=== PATIENT | male | born 1950 | race Caucasian/White ===

== ENCOUNTER 2022-04-27 10:09 | Outpatient (REF) | payer MEDICARE, SELFPAY ==
[2022-04-27 10:23] LABS: MANUAL DIFF FLAG NO
[2022-04-27 11:02] LABS: Basophils Percent Auto 0.6 % (0-2); Eosinophils Absolute Auto 0.2 X10*3/uL (0.0-0.4); Eosinophils Percent Auto 2.6 % (0-4); Hematocrit 40.8 % (42.0-52.0); Hemoglobin 13.5 g/dl (14.0-18.0); Imm Gran Abs Auto 0.03 X10*3/uL (0.00-0.03); Imm Gran Pct Auto 0.4 % (0.0-0.4); Lymphocytes Absolute Auto 1.9 X10*3/uL (1.2-4.9); Lymphocytes Percent Auto 26.5 % (20-40); Mean Corpuscular HGB Conc 33.1 g/dl (31.0-36.0); Mean Corpuscular Hemoglobin 29.1 pg (27.0-33.0); Mean Corpuscular Volume 87.9 fL (80.0-98.0); Monocytes Absolute Auto 0.5 X10*3/uL (0.1-1.2); Monocytes Percent Auto 7.5 % (2-11); Neutrophils Absolute Auto 4.5 x10*3/uL (2.0-8.3); Neutrophils Percent Auto 62.4 % (45-73); Platelet Count 211 X10*3/uL (160-400); Red Blood Count 4.64 X10*6/uL (4.60-5.80); Red Cell Distribution Width 15.9 % (11.0-16.0); White Blood Count 7.2 X10*3/uL (4.8-10.8)
[2022-04-27 11:56] LABS: Prostate Specific Antigen 1.12 ng/mL (<0.05-4.0)
[2022-04-27 11:57] LABS: Alanine Aminotransferase 20 U/L (0-40); Albumin Level 4.2 g/dL (3.5-5.0); Alkaline Phosphatase 66 U/L (39-117); Anion Gap 15 (12-20); Aspartate Amino Transferase 22 U/L (5-37); Bilirubin Total 0.6 mg/dL (0.0-1.0); Blood Urea Nitrogen 14 mg/dL (9-16); Calcium 9.1 mg/dL (8.4-10.2); Carbon Dioxide 24 mmol/L (22-29); Chloride 106 mmol/L (96-108); Cholesterol 158 mg/dL; Estimated Glomerular Filt Rate > 60; Glucose Fasting 96 mg/dL (60-99); HDL Cholesterol 70 mg/dL; LDL Cholesterol Calculated 81 mg/dl; Potassium 4.8 mmol/L (3.3-5.1); Sodium 140 mmol/L (135-145); Triglycerides 35 mg/dL
== END 2022-04-27 10:10 | disposition home or self-care (01) ==
LOC: HO.LAB 10:09
PROVIDERS: PCP Internal Medicine; Visit Provider Internal Medicine
DX: Z12.5 Encounter for screening for malignant neoplasm of prostate (principal); I25.10 Atherosclerotic heart disease of native coronary artery without angina pectoris; I10 Essential (primary) hypertension; E78.00 Pure hypercholesterolemia, unspecified; N40.0 Benign prostatic hyperplasia without lower urinary tract symptoms
CPT/HCPCS: 36415; 80053; 80061; 84153; 85025

== ENCOUNTER 2025-06-25 10:17 | Outpatient (AMB) | payer MEDICARE, SELFPAY ==
--- NOTE | 2025-06-25 09:52 | A.OFFPC_ITS ---
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 Customer Required: No Accompanied by: Self / Same As Patient Allergies Sulfa (Sulfonamide Antibiotics) Allergy (Unknown, Verified 04/25/13 00:00) Medication List - Last Reconciled 06/25/25 by Atul Oliver MD amlodipine 5 mg PO BID apixaban (Eliquis) 5 mg PO BID atorvastatin 40 mg PO BEDTIME cholecalciferol (vitamin D3) 125 mcg PO DAILY glucosamine HCl 1,500 mg PO BID hydrochlorothiazide 12.5 mg PO DAILY losartan 50 mg PO BID lysine 500 mg PO DAILY metoprolol succinate ER 25 mg PO BEDTIME multivitamin 1 tab PO DAILY vardenafil 10 mg PO DAILY PRN Tobacco use date assessed: 06/25/25 Fall risk assessment: No Falls in past year Last assessed Fall Risk: 06/25/25 Dental Screening Dental Screen Date: 06/25/25 Did you have a dental visit in the last 12 months?: Yes Did you have a dental problem in the last 6 months where you did not have access to dental care?: No HPI HPI Comments History of Present Illness Details The patient is a 75-year-old male presenting with chronic left knee pain due to recurrent scar tissue formation following knee replacement. The primary issue began several years ago following two knee replacement surgeries. Despite multiple surgical interventions to remove the scar tissue and joint manipulations, the patient continues to experience severe stiffness and an inability to fully extend the knee, resulting in a persistent limp. The condition has significantly impacted the patient's activities, including the cessation of motorcycling and difficulty with daily mobility. The patient reports undergoing therapy with good therapists, but stiffness reoccurs within weeks after any surgical intervention. The patient's past surgical history includes two knee replacements, multiple scar tissue removals, and manipulative procedures to address the knee issue. Despite seeing specialists in [place] and undergoing further interventions, the patient continues to experience significant limitations in function and pain attributed to the scar tissue. The patient has a background in playing hockey, which has potentially contributed to his knee issues. Medical History: - Coronary artery disease with eight gladys nts - Atrial fibrillation - Hypertension, managed with amlodipine and hydrochlorothiazide - Hyperlipidemia, managed with atorvasta tin - History of stroke and ongoing anticoag ulation with Eliquis - Arthritis - Sulfonamide allergy - Lumbar disc herniation at L4-L5 with s urgical intervention - Alcohol use with nightly consumption Surgical History: - Two left knee replacements - Multiple surgeries for removal of scar tissue from the left knee - Lumbar surgery for disc herniation bet ween L4-L5 - Coronary artery bypass surgery Medications: - Amlodipine 5 mg for hypertension - Hydrochlorothiazide 12.5 mg for hypert ension - Losartan 50 mg twice daily for hyperte nsion - Metoprolol succinate 25 mg for atrial fibrillation - Eliquis (undefined dose) for atrial fi brillation - Atorvastatin 40 mg for hyperlipidemia - Multivitamins - Lysine - Glucosamine and chondroitin for knee h ealth Family History: - Mother had arthritis - Father had a heart condition - Sister with no significant health issu es reported Diagnostic Results: - Previous blood work from 2021 reported as within normal limits - Cholesterol levels previously reported as acceptable Social History: - Former employee of the [employer] retired - Engages in [employer] and [employer] es - Performs volunteer work for elderly in [place] - Regular alcohol consumption - History of smoking during young adulth ood - Maintains an active lifestyle despite physical challenges [facility] Medical History (Updated 06/25/25 @ 11:42 by Atul Oliver MD) Alcohol use disorder Atrial fibrillation CAD (coronary artery disease) Osteoarthritis Hypertension Hyperlipidemia Family History (Updated 06/25/25 @ 10:30 by Fadia Marion MA) Mother No problems noted. Father No problems noted. Social History Housing: House Patient Tobacco Use Status: Never used Tobacco e-Cigarette/Vaping Use: Never Used service: No Current occupational status: retired Cognitive needs: No Hearing needs: No Vision needs: Yes (Reading glasses) Questionnaire PHQ-9 Over the last 2 weeks, how often have you been bothered by any of the following problems? 1. Little interest or pleasure in doing things: not at all 2. Feeling down, depressed, or hopeless: not at all 3. Trouble falling or staying asleep, or sleeping too much: not at all 4. Feeling tired or having little energy: not at all 5. Poor appetite or overeating: not at all 6. Feeling bad about yourself - or that you are a failure or have let yourself or your family down: not at all 7. Trouble concentrating on things, such as reading the newspaper or watching television: not at all 8. Moving or speaking so slowly that other people could have noticed. Or the opposite - being so fidgety or restless that you have been moving around a lot more than usual: not at all 9. Thoughts that you would be better off or of hurting yourself in some way: not at all Total score: 0 Depression Screening Interpretation: Negative Depression Screening Done: Yes 24306 - PHQ-9 Billing: Yes Source: Developed by Drs. Earle Burrell, Caroline Castillo, King Duque and colleagues, with an educational daphney from [employer]. Thrive Questionnaire Date Thrive assessed: 06/25/25 I am a: Patient What is your living situation today?: I have a steady place to live Within the past 12 months, did the food you bought not last and you didn't have the money to get more?: Never true Within the past 12 months, did you worry whether your food would run out before you got money to buy more?: Never true Do you have trouble paying for medicines?: No Do you have trouble getting transportation to medical appointments?: No Do you have trouble paying your heating and electricity bill?: No Do you have trouble taking care of your child, family member or friend?: No Do you have trouble with day-to-day activities such as bathing, preparing meals, shopping, managing finances, etc.?: No Are you currently unemployed and looking for a job?: No Are you interested in more education?: No THRIVE Score: 0 AUDIT C Alcohol Use Questionnaire (AUDIT-C) 1. How often do you have a drink containing alcohol?: 4 or more times a week 2. How many drinks containing alcohol do you have on a typical day when you are drinking?: 1 or 2 3. How often do you have six or more drinks on one occasion?: Never Total Score: 4 Score Reviewed/Action Taken: Yes SAVANNAH-7 AMB Questionnaire SAVANNAH-7 Date SAVANNAH - 7 assessed: 06/25/25 Feeling nervous, anxious, or on edge: 0 = Not at all Not being able to stop or control worryin = Not at all Worrying too much about different things: 0 = Not at all Trouble relaxin = Not at all Being so restless that it is hard to sit still: 0 = Not at all Becoming easily annoyed or irritable: 0 = Not at all Feeling afraid as if something awful might happen: 0 = Not at all Total SAVANNAH-7 score (0-4 normal; 5-9 mild; 10-14 moderate; 15-21 severe): 0 Source: Developed by Drs. Earle Burrell, Caroline Castillo, King Duque and colleagues, with an educational daphney from [employer]. SAVANNAH-7 Assessment Billing SAVANNAH-7 Assessment Tool: SAVANNAH-7 Assessment 52886 Review of Systems Narrative - Musculoskeletal: Reports chronic left knee pain and inability to bend the knee fully - Cardiovascular: Denies chest pain but reports history of coronary artery disease and atrial fibrillation - Neurological: Reports history of stroke - Gastrointestinal: Reports regular colonoscopies with no concerns - Social: Reports nightly alcohol consumption All systems reviewed & are unremarkable except as reviewed in HPI and above Physical exam (Primary Care) Vital Signs: Last Vital Signs Temp 97.4 F 06/25/25 10:24 Pulse 66 06/25/25 10:24 BP 130/80 06/25/25 10:24 Pulse Ox 99 06/25/25 10:24 Oxygen Delivery Method Room Air 06/25/25 10:24 BMI result Body Mass Index 32.6 Tobacco/Smoking Status: Tobacco use Status Tobacco use date assessed 06/25/25 06/25/25 10:34 Patient Tobacco Use Status Never used Tobacco 06/25/25 10:34 e-Cigarette/Vaping Use Never Used 06/25/25 10:34 PHQ-9: PHQ-9 Score PHQ-9: Total score 0 06/25/25 10:44 Depression Screening Interpretation: Negative Thrive Assessment: Date of Thrive Assessment Date Thrive assessed 06/25/25 06/25/25 10:34 Narrative General: +Alert and oriented, Well nourished, No acute distress. Eye: Pupils are equal, round and reactive to light, Intact accommodation, Extraocular movements are intact, Normal conjunctiva, Vision unchanged. HENT: Normocephalic, Atraumatic, Tympanic membranes are clear, Normal hearing, Oral mucosa is moist, No pharyngeal erythema, Ear canals patent. Respiratory: Lungs CTA bilaterally, No wheeze, Respirations are non-labored. Cardiovascular: Regular rate, Regular rhythm, S1 auscultated, S2 auscultated, No murmur, Good pulses equal in all extremities, Normal peripheral perfusion, No edema. Gastrointestinal: Soft, Non-tender, Non-distended, Normal bowel sounds, No organomegaly. Musculoskeletal: Limited range of motion in the left leg, Normal strength, No tenderness, No swelling, No deformity, Limp present, Normal gait otherwise. Integumentary: Warm, Dry, [place], Intact. Neurologic: Alert, Oriented, Normal sensory, Normal motor function, No focal defects, Cranial Nerves II-XII are grossly intact, Normal deep tendon reflexes. Psychiatric: Cooperative, Appropriate mood & affect, Normal judgment. Coding Level of Care Code New Pt Level 4 (64090) Diagnoses Other hyperlipidemia E78.49 Hyperlipidemia type: other hyperlipidemia Primary hypertension I10 Hypertension type: primary hypertension Other secondary osteoarthritis, unspecified site M19.93 Osteoarthritis location: unspecified site Osteoarthritis type: other secondary Coronary artery disease, unspecified vessel or lesion type, unspecified whether angina present, unspecified whether [place] or transplanted heart I25.10 Coronary Disease-Associated Artery/Lesion type: unspecified vessel or lesion type [place] vs. transplanted heart: unspecified whether [place] or transplanted heart Associated angina: unspecified whether angina present Paroxysmal atrial fibrillation I48.0 Atrial fibrillation type: paroxysmal Alcohol use disorder F10.90 Additional Codes PHQ-9 - 58061 - PHQ-9 Billing: Yes ([id number]) SAVANNAH-7 Assessment Billing - SAVANNAH-7 Assessment Tool: SAVANNAH-7 Assessment 60519 ([id number]) Assessment & Plan Assessment & Plan (1) Hyperlipidemia: Comment: - Continue atorvastatin with periodic review of lipid profiles. Code(s): E78.5 - Hyperlipidemia, unspecified Category: Medical Qualifiers: Hyperlipidemia type: other hyperlipidemia Qualified Code(s): E78.49 - Other hyperlipidemia (2) Hypertension: Comment: - Current pharmacotherapy of amlodipine, hydrochlorothiazide, and losartan; monitoring of blood pressure to be maintained. Code(s): I10 - Essential (primary) hypertension Category: Medical Qualifiers: Hypertension type: primary hypertension Qualified Code(s): I10 - Essential (primary) hypertension (3) Osteoarthritis: Comment: - Plan includes discussions regarding potential causative conditions such as fibroblast activity causing excessive scar tissue. - Encouraged continuation of glucosamine and chondroitin supplements for joint health. - Discussed limits to possible surgical interventions due to past history. Code(s): M19.90 - Unspecified osteoarthritis, unspecified site Category: Medical Qualifiers: Osteoarthritis location: unspecified site Osteoarthritis type: other secondary Qualified Code(s): M19.93 - Secondary osteoarthritis, unspecified site (4) CAD (coronary artery disease): Comment: - Current management with statin and antihypertensives; no changes were discussed. - Continuous cardiology follow-up is necessary given the patient's extensive cardiac history. Code(s): I25.10 - Atherosclerotic heart disease of [place] coronary artery without angina pectoris Category: Medical Qualifiers: Coronary Disease-Associated Artery/Lesion type: unspecified vessel or lesion type [place] vs. transplanted heart: unspecified whether [place] or transplanted heart Associated angina: unspecified whether angina present Qualified Code(s): I25.10 - Atherosclerotic heart disease of [place] coronary artery without angina pectoris (5) Atrial fibrillation: Comment: - Continue current atrial fibrillation management with Eliquis and metoprolol succinate. Code(s): I48.91 - Unspecified atrial fibrillation Category: Medical Qualifiers: Atrial fibrillation type: paroxysmal Qualified Code(s): I48.0 - Paroxysmal atrial fibrillation (6) Alcohol use disorder: Comment: - Encouraged moderation in intake, aiming to limit consumption. Code(s): F10.90 - Alcohol use, unspecified, uncomplicated Category: Medical Plan: Health Maintenance: - Routine blood work to assess cholesterol, electrolytes, kidney function, thyroid, and diabetes screen as discussed - Continue regular cardiology follow-up - Encourage vaccinations and routine health screenings per age and health status - Regular exercise encouragement Patient was informed and verbally consented to the use of an ambient scribe for clinic note documentation during this visit. Plan I discussed with the patient the ongoing issues with his knee, including recurrent scar tissue formation. We considered the challenges of recurrent surgeries and emphasized the importance of managing exercise and glucosamine supplementation. I recommended follow-up visits with cardiology for ongoing coronary artery disease management, ensuring comprehensive oversight of his cardiac health. I provided advice on substance use, emphasizing the benefits of alcohol moderation and ongoing physical activities like skiing and golfing, given his active lifestyle. Given the extensive surgical history, future interventions will need careful consideration to avoid complications. Orders: Orders Complete Blood Count Auto Diff Today Z76.89 - Persons encountering health services in other specified circumstances Lipid Panel Today Z76.89 - Persons encountering health services in other specified circumstances TSH reflex Free T4 Today Z76.89 - Persons encountering health services in other specified circumstances Vitamin D 25-OH Total Today Z76.89 - Persons encountering health services in other specified circumstances Comprehensive Met. Panel Today Z76.89 - Persons encountering health services in other specified circumstances Hemoglobin A1c Today Z76.89 - Persons encountering health services in other specified circumstances Medications: Changed From vardenafil Take 1 tablet daily as needed 10 mg PO DAILY PRN To vardenafil Take 1 tablet daily as needed 10 mg PO DAILY 30 tabs 0RF From vardenafil Take 1 tablet daily as needed 10 mg PO DAILY 30 tabs 0RF To vardenafil Take 1 tablet daily as needed 20 mg (2 x 10 mg) PO DAILY 30 tabs 0RF Patient Instructions: - Continue current medications as prescribed. - Limit alcohol intake to moderate levels. - Pursue regular physical exercise as tolerated. - Keep regular follow-up appointments with cardiology. - Address immediate issues with knee pain through non-surgical means as much as possible. - Report any new or worsening symptoms immediately.
[2025-06-25 10:24] VITALS: BP 130/80; PULSE 66; TEMP 36.3; O2SAT 99; BMI 32.6
== END 2025-06-25 11:18 | disposition home or self-care (01) ==
LOC: HO.HMCHD 10:17
PROVIDERS: PCP Internal Medicine; Visit Provider Student in an Organized Health Care Education/Training Program
DX: E78.49 Other hyperlipidemia (principal); I10 Essential (primary) hypertension; M19.93 Secondary osteoarthritis, unspecified site; I25.10 Atherosclerotic heart disease of native coronary artery without angina pectoris; I48.0 Paroxysmal atrial fibrillation; F10.90 Alcohol use, unspecified, uncomplicated

== ENCOUNTER 2025-06-25 11:03 | Outpatient (REF) | payer MEDICARE, SELFPAY ==
[2025-06-25 12:21] LABS: MANUAL DIFF FLAG NO
[2025-06-25 12:29] LABS: Hematocrit 42.7 % (42.0-52.0); Hemoglobin 14.7 g/dl (14.0-18.0); Imm Gran Abs Auto 0.03 X10*3/uL (0.00-0.03); Imm Gran Pct Auto 0.3 % (0.0-0.4); Lymphocytes Absolute Auto 1.6 X10*3/uL (1.2-4.9); Mean Corpuscular HGB Conc 34.4 g/dl (31.0-36.0); Mean Corpuscular Hemoglobin 31.5 pg (27.0-33.0); Mean Corpuscular Volume 91.6 fL (80.0-98.0); NRBC Abs Auto 0.000 X10*3/uL (0.0-0.012); NRBC Pct Auto 0.0 /100WBC (0.0-0.2); Platelet Count 227 X10*3/uL (160-400); Red Blood Count 4.66 X10*6/uL (4.60-5.80); White Blood Count 9.2 X10*3/uL (4.8-10.8)
[2025-06-25 12:36] LABS: Hemoglobin A1C 145.6189 umol/L; Total Hemoglobin (HGBA1C) 3847.7539 umol/L
[2025-06-25 12:54] LABS: Alanine Aminotransferase 24 U/L (0-40); Albumin Level 4.6 g/dL (3.5-5.0); Alkaline Phosphatase 70 U/L (39-117); Anion Gap 10 (12-20); Aspartate Amino Transferase 29 U/L (5-37); Blood Urea Nitrogen 15 mg/dL (9-16); Calcium 9.3 mg/dL (8.4-10.2); Carbon Dioxide 28 mmol/L (22-29); Chloride 105 mmol/L (96-108); Cholesterol 155 mg/dL (<200); Estimated Glomerular Filt Rate > 60; HDL Cholesterol 63 mg/dL (>40); Potassium 3.9 mmol/L (3.3-5.1); Sodium 139 mmol/L (135-145); Total Protein 7.4 g/dL (6.5-8.0); Triglycerides 38 mg/dL (<150)
== END 2025-06-25 11:04 | disposition home or self-care (01) ==
LOC: HO.10HDL 11:03
PROVIDERS: Visit Provider Student in an Organized Health Care Education/Training Program
DX: Z76.89 Persons encountering health services in other specified circumstances (principal); Z13.1 Encounter for screening for diabetes mellitus; I10 Essential (primary) hypertension; E78.5 Hyperlipidemia, unspecified; E78.49 Other hyperlipidemia; M19.93 Secondary osteoarthritis, unspecified site; I25.10 Atherosclerotic heart disease of native coronary artery without angina pectoris; I48.0 Paroxysmal atrial fibrillation; F10.90 Alcohol use, unspecified, uncomplicated
CPT/HCPCS: 36415; 80053; 80061; 82306; 83036; 84443; 85025; 96127; 99202